=== PATIENT | male | born 1960 | race Hispanic/Latino ===

== ENCOUNTER 2017-12-16 14:31 | Outpatient (CLI) | payer BC | END 2017-12-16 14:32 | disposition home or self-care (01) | LOC: BICMRI 14:31 | PROVIDERS: ATTEND Psychiatry & Neurology Neurology | DX: M51.27 Other intervertebral disc displacement, lumbosacral region (principal); M47.896 Other spondylosis, lumbar region; M48.061 Spinal stenosis, lumbar region without neurogenic claudication; M99.83 Other biomechanical lesions of lumbar region; D64.9 Anemia, unspecified | CPT/HCPCS: 36415; 72148; 80053; 80061; 82306; 83036 ==